=== PATIENT | male | born 1945 | race Caucasian/White ===

== ENCOUNTER 2017-04-21 19:37 | Inpatient (IN) | payer OTHER, BC ==
[~2017-04-21] VITALS: Ht 188 cm; Wt 111.1 kg
[~2017-04-21 19:37] MED LIST: ASPIRIN81 M2 PO; GLUCOTROL10 MG PO; Glucotrol PO; LANTUS 3 M100 UNITS1 SC; LISINOPRIL PO; METFORMIN PO; SIMVASTATIN PO; Toprol XL PO; celeXA PO
[2017-04-21 20:00] VITALS: BP 150/65
[2017-04-21 20:02] VITALS: BP 150/65
[2017-04-21] MEDS ORDERED: ATORVASTATIN CA80 MG PO (20:04)
[2017-04-21] MEDS ORDERED: INVOKANA300 MG PO (20:05)
[2017-04-21] MEDS ORDERED: CITALOPRAM HBR40 MG PO (20:09)
[2017-04-21] MEDS ORDERED: PLAVIX75 MG PO (20:10)
[2017-04-21] MEDS ORDERED: LEVEMIR FL100 UNIT/1 SC (20:14)
[2017-04-21] MEDS ORDERED: COZAAR50 MG PO (20:21)
[2017-04-21] MEDS ORDERED: AMLODIPINE BESYL5 MG PO (20:24)
[2017-04-21] MEDS ORDERED: SENNALAX-S TAB1 EACH PO (20:28)
[2017-04-21] MEDS ORDERED: HEPARIN SO5000 UNIT3 SC (20:35)
[2017-04-21] MEDS ORDERED: ROBAXIN750 MG PO (20:38)
[2017-04-21] MEDS ORDERED: OXAYDO5 MG PO (20:41)
[2017-04-21] MEDS ORDERED: OXYCODONE HCL10 MG PO (20:43)
[2017-04-21] MEDS ORDERED: BENADRYL25 MG PO (20:43)
[2017-04-21] MEDS ORDERED: ZOFRAN4 MG/2 ML IV (20:44)
[2017-04-21] MEDS ORDERED: TYLENOL REGULA325 MG PO (20:44)
[2017-04-21] MEDS ORDERED: MORPHINE SULFA1 DOSE IV ×2 (20:46→20:48)
[2017-04-21 20:53] LABS: POINT-OF-CARE METER ID UU13113720
[2017-04-21 22:33] VITALS: BP 146/63
[2017-04-21] MEDS ORDERED: FLOMAX0.4 MG PO (22:36)
[2017-04-21] MEDS ORDERED: ASPIRIN81 M2 PO (22:38)
[2017-04-22 05:19] VITALS: BP 147/70
[2017-04-22 07:01] LABS: POINT-OF-CARE METER ID UU13113720
[2017-04-22 07:29] LABS: HEMATOCRIT 33.2 % (38.0-50.0); MCH 31.5 PG (29.0-34.0); MCV 92.5 FL (86-99); MEAN PLAT.VOLUME 11.3 uM^3 (9.0-12.4); PLATELET COUNT 130 K/uL (156-360); RBC DIS.WIDTH-CV 13.3 % (11.8-14.6); RED BLOOD COUNT 3.59 M/uL (4.00-5.50); WHITE BLOOD COUNT 8.1 K/uL (4.1-10.2)
[2017-04-22 07:51] LABS: ALKALINE PHOSPHATASE 73 IU/L (3-129); ANION GAP 8 MEQ/L (2-14); CHLORIDE 103 MEQ/L (99-109); GFR ESTIMATE (CALCULATED) > 59 mL/min/; GLUCOSE 163 mg/dL (70-99); POTASSIUM 4.1 MEQ/L (3.7-5.4); SAMPLE HEMOLYSIS CHECK 0; SAMPLE ICTERIC CHECK 0; SAMPLE LIPEMIA CHECK 0; SODIUM 137 MEQ/L (136-147); TOTAL BILIRUBIN 0.9 MG/DL (0.0-1.0); UREA NITROGEN (BUN) 22 mg/dL (9-23)
[2017-04-22 11:38] LABS: POINT-OF-CARE METER ID UU13113720
[2017-04-22 15:00] VITALS: BP 159/70
[2017-04-22 16:10] LABS: POINT-OF-CARE METER ID UU13113720
[2017-04-22 21:09] LABS: POINT-OF-CARE METER ID UU13113720
[2017-04-23 04:48] VITALS: BP 162/54; BP 197/81
[2017-04-23 06:50] LABS: POINT-OF-CARE METER ID UU13113712
[2017-04-23 12:01] LABS: POINT-OF-CARE METER ID UU13113720
[2017-04-23 15:03] VITALS: BP 174/75
[2017-04-23 15:27] VITALS: BP 158/70
[2017-04-23 16:13] LABS: POINT-OF-CARE METER ID UU13113720
[2017-04-23] MEDS ORDERED: LANTUS 3 M100 UNITS1 SC (16:33)
[2017-04-23 21:03] LABS: POINT-OF-CARE METER ID UU13113720
[2017-04-24 05:13] VITALS: BP 168/70
[2017-04-24 07:19] LABS: POINT-OF-CARE METER ID UU13113720; POINT-OF-CARE USER ID AHSSSJB31
[2017-04-24 11:47] LABS: POINT-OF-CARE METER ID UU13113720; POINT-OF-CARE USER ID AHSSSJB31
[2017-04-24 15:13] VITALS: BP 122/57
[2017-04-24 16:21] LABS: POINT-OF-CARE METER ID UU13113712
[2017-04-24 21:16] LABS: POINT-OF-CARE METER ID UU13113720
[2017-04-25 04:56] VITALS: BP 152/82
[2017-04-25 07:54] LABS: POINT-OF-CARE METER ID UU13113720; POINT-OF-CARE USER ID AHSSSJB31
[2017-04-25 11:49] LABS: POINT-OF-CARE METER ID UU13113712; POINT-OF-CARE USER ID AHSSSJB31
[2017-04-25 15:31] VITALS: BP 137/64
[2017-04-25 16:30] LABS: POINT-OF-CARE METER ID UU13113720
[2017-04-25 21:20] LABS: POINT-OF-CARE METER ID UU13113712
[2017-04-26 05:06] VITALS: BP 176/74
[2017-04-26 08:25] LABS: POINT-OF-CARE METER ID UU13113712
[2017-04-26 11:19] LABS: POINT-OF-CARE METER ID UU13113712; POINT-OF-CARE USER ID AHSSSJB31
[2017-04-26 16:03] VITALS: BP 179/78
[2017-04-26 16:16] LABS: POINT-OF-CARE METER ID UU13113712
[2017-04-26 17:37] VITALS: BP 148/64
[2017-04-26 21:24] LABS: POINT-OF-CARE METER ID UU13113712
[2017-04-27 05:02] VITALS: BP 143/77
[2017-04-27 05:38] LABS: HEMATOCRIT 34.3 % (38.0-50.0); MCH 31.3 PG (29.0-34.0); MCHC 34.7 G/DL (30.0-36.0); MCV 90.3 FL (86-99); MEAN PLAT.VOLUME 11.4 uM^3 (9.0-12.4); PLATELET COUNT 153 K/uL (156-360); RBC DIS.WIDTH-CV 13.1 % (11.8-14.6); RBC DIS.WIDTH-SD 42.8 % (39-53); WHITE BLOOD COUNT 6.8 K/uL (4.1-10.2)
[2017-04-27 06:25] LABS: ALKALINE PHOSPHATASE 70 IU/L (3-129); ANION GAP 7 MEQ/L (2-14); CHLORIDE 106 MEQ/L (99-109); GFR ESTIMATE (CALCULATED) > 59 mL/min/; GLUCOSE 169 mg/dL (70-99); POTASSIUM 4.2 MEQ/L (3.7-5.4); SAMPLE HEMOLYSIS CHECK 0; SAMPLE ICTERIC CHECK 0; SAMPLE LIPEMIA CHECK 0; SODIUM 142 MEQ/L (136-147); UREA NITROGEN (BUN) 15 mg/dL (9-23)
[2017-04-27 06:26] LABS: TOTAL BILIRUBIN 0.5 MG/DL (0.0-1.0)
[2017-04-27 07:56] LABS: POINT-OF-CARE METER ID UU13113712; POINT-OF-CARE USER ID AHSSSJB31
[2017-04-27 12:24] LABS: POINT-OF-CARE METER ID UU13113712
[2017-04-27 15:55] VITALS: BP 139/58
[2017-04-27 16:29] LABS: POINT-OF-CARE METER ID UU13113712
[2017-04-27 20:51] LABS: POINT-OF-CARE METER ID UU13113712
[2017-04-28 06:10] VITALS: BP 142/64
[2017-04-28 06:35] LABS: POINT-OF-CARE METER ID UU13113720; POINT-OF-CARE USER ID ENVGAF
[2017-04-28] MEDS ORDERED: LANTUS 3 M100 UNITS1 SC (08:06)
[2017-04-28] MEDS ORDERED: METFORMIN HCL1000 MG PO (08:06)
[2017-04-28] MEDS ORDERED: FLOMAX0.4 MG PO (08:06)
[2017-04-28] MEDS ORDERED: SENNA PLUS TAB1 EACH PO (08:06)
[2017-04-28] MEDS ORDERED: OXYCODONE HCL5 MG PO (08:06)
[2017-04-28 11:35] LABS: POINT-OF-CARE METER ID UU13113720; POINT-OF-CARE USER ID AHSSSJB31
== END 2017-04-28 14:06 | DRG 949 ==
LOC: 3WEST 19:37 → ENPENDDIS 04-28 → 3WEST 04-28 14:06
PROVIDERS: Physical Medicine & Rehabilitation Pain Medicine
PROC: F07M0ZZ Range of Motion and Joint Mobility Treatment of Musculoskeletal System - Whole Body (ICD-10-PCS; principal; 2017-04-21)
DX: Z48.89 Encounter for other specified surgical aftercare (principal); E11.42 Type 2 diabetes mellitus with diabetic polyneuropathy; I69.354 Hemiplegia and hemiparesis following cerebral infarction affecting left non-dominant side; Z74.09 Other reduced mobility; R26.2 Difficulty in walking, not elsewhere classified; G89.18 Other acute postprocedural pain; M54.5 Low back pain; I10 Essential (primary) hypertension; M19.90 Unspecified osteoarthritis, unspecified site; E78.5 Hyperlipidemia, unspecified; I73.9 Peripheral vascular disease, unspecified; I25.10 Atherosclerotic heart disease of native coronary artery without angina pectoris; F17.210 Nicotine dependence, cigarettes, uncomplicated; E78.00 Pure hypercholesterolemia, unspecified; M51.36 Other intervertebral disc degeneration, lumbar region; M47.816 Spondylosis without myelopathy or radiculopathy, lumbar region; N39.490 Overflow incontinence; R33.8 Other retention of urine; N40.1 Benign prostatic hyperplasia with lower urinary tract symptoms; N99.89 Other postprocedural complications and disorders of genitourinary system; Z82.49 Family history of ischemic heart disease and other diseases of the circulatory system; R05 Cough; R26.9 Unspecified abnormalities of gait and mobility
CPT/HCPCS: 71010; 80053; 82948; 85027; 93970; 97110 GO; 97530 GP; J1644; J1815